=== PATIENT | male | born 1950 | race Caucasian/White ===

== ENCOUNTER 2019-07-09 11:05 | Outpatient (CLI) | payer MEDICARE, OTHER ==
[~2019-07-09] VITALS: Ht 172.7 cm; Wt 75.7 kg
[2019-07-09] VITALS (8 sets, daily range): BP systolic 111–155; BP diastolic 65–77
[2019-07-09] MEDS ORDERED: NS IV 500 ML 500 ML ONE (11:33)
--- NOTE | 2019-07-09 14:23 | Consultation - Surgery ---
History of Present Illness History of Present Illness Patient Consulted On(ulices/time) 07/09/19 14:17 Time Seen by Provider: 11:50 History of Present Illness Pt is a 69 yo male who was being sent to my office secondary to anemia, but got redirected to have blood transfusion. Apparently his hemoglobin approximately 6 months ago was 10 and now it is around 6. Pt admits to feeling weak and short of breath. His biggest complaint is that recently his back pain has been getting worse. states "the spasms stop him in his tracks and he has to wait til they pass". Pt also states that he is starting to have increasing pain and numbness in right leg. Importantly pt relates that he has renal stenosis and has had the right one stented; plus he has a AAA that is being followed by US. He thinks he may have seen some black BM's; doesn't remember anything red, however "I don't really look" was his statement. Allergies and Home Medications Allergies Coded Allergies: No Known Drug Allergies (Unverified , 07/09/19) Patient Home Medication List Home Medication List Reviewed: Yes (GEmfibrizol, Fish oil, Clonidine, ASA, Meloxicam, Lovastatin, Lisinopril, HCTZ) Past Kqobqxd-Afqmch-Mvllfa Hx Patient Social History Smoking Status: Former Smoker (Quit in 2003) Recent Foreign Travel: No Contact w/Someone Who Travel: No Recent Infectious Disease Expo: No Immunizations Up To Date Tetanus Booster (TDap): Unknown Seasonal Allergies Seasonal Allergies: No Surgeries History of Surgeries: Yes Surgeries: Renal (stent placement) Respiratory History of Respiratory Disorde: No Cardiovascular History of Cardiac Disorders: Yes (Hypercholesterolemia) Cardiac Disorders: Aneurysm Neurological History of Neurological Disord: No Reproductive System Hx Reproductive Disorders: No Sexually Transmitted Disease: No HIV/AIDS: No Genitourinary History of Genitourinary Disor: Yes (renal stenosis) Gastrointestinal History of Gastrointestinal Di: No Musculoskeletal Musculoskeletal Disorders: Degenerate Disk Disease, Spasms Endocrine History of Endocrine Disorders: No (However, pt has been diagnosed with "elevated glucose" in the past) HEENT History of HEENT Disorders: No Cancer History of Cancer: No Psychosocial History of Psychiatric Problem: No Integumentary History of Skin or Integumenta: No Blood Transfusions History of Blood Disorders: No Hx of Blood Transfusion Today is first transfusion Family Medical History Significant Family History: Cancer (Mother, Father, Sister), COPD (Lung), Diabetes (sister), Renal Disease (sister) Review of Systems-General Constitutional: dizziness, weight loss (pt has had decreased appetite over past few months) EENTM: No blurred vision, No double vision, No mouth pain, No mouth swelling, No epistaxis, No throat swelling Respiratory: dyspnea on exertion; No hemoptysis; short of breath; No wheezing Cardiovascular: No edema; Hx of Intervention; No palpitations; other (AAA) Gastrointestinal: abdominal pain; No diarrhea, No hematemesis, No jaundice; loss of appetite, melena Genitourinary: No dysuria, No frequency, No hematuria Musculoskeletal: back pain, joint pain, joint swelling, muscle pain, muscle stiffness Skin: No change in color, No change in hair/nails Psychiatric/Neurological: Denies Anxiety; Numbness, Paresthesia; Denies Seizure; Weakness Other pt denies any history of abnormal bleeding or bruising Physical Exam-General Problems Physical Exam Vital Signs Vital Signs - First Documented 07/09/19 11:25 Temp 36.7 Pulse 76 Resp 16 B/P (MAP) 134/69 Pulse Ox 98 O2 Delivery Room Air Capillary Refill : Less Than 3 Seconds General Appearance: WD/WN, mild distress Eyes: Bilateral Eye PERRL, Bilateral Eye EOMI HEENT: pharynx normal; No scleral icterus (R), No scleral icterus (L); pale conjunctivae (R), pale conjunctivae (L) Neck: non-tender, full range of motion, supple Respiratory: chest non-tender, lungs clear, normal breath sounds, no respiratory distress, no accessory muscle use Cardiovascular: regular rate, rhythm, systolic murmur (but may be due to AAA) Peripheral Pulses: 3+ Carotid (R), 3+ Carotid (L); 2+ Femoral (R); 3+ Femoral (L); 1+ Dorsalis Pedis (R); 3+ Left Dors-Pedis (L), 3+ Radial Pulses (R), 3+ Radial Pulses (L) Gastrointestinal: normal bowel sounds, non tender, soft, no organomegaly, other (pulsatile mass in abdomen) Back: no CVA tenderness, no vertebral tenderness Extremities: no pedal edema, no calf tenderness, normal capillary refill Neurologic/Psychiatric: rn access II-XII nml as tested, no motor/sensory deficits, alert, normal mood/affect, oriented x 3 Skin: normal color, warm/dry Lymphatic: no adenopathy (neck, axilla or groin) Assessment/Plan Assessment/Plan Assessment/Plan Anemia GI bleed AAA Renal Stenosis Pt is getting blood transfusion now, will need EGD and colonoscopy as an outpt. I discussed with pt that he may need a CT of abd/pelvis to look at his AAA. Of concern, but probably not likely would be if the aneurysm is leaking into the bowel. He should follow up right away with Vascular surgeon that is following him. He states US has shown no real change in the aneursym, "and my kidney and neck are ok". Sudden or severe back pain could be an emergent situation and he was told to not ignore any symptoms. We discussed risks and complications of colon and EGD; not limited to pain, bleeding, infection, intestinal perforation or esophageal rupture. All questions answered to their satisfaction and I will have my office call to schedule the procedures as an outpt. ALEENA TALAMANTES DO Jul 09, 2019 14:23
--- NOTE | 2019-07-09 14:44 | NUR ---
REPORT TO My LOGAN RN
[2019-07-09 14:55] LABS: HEMOGLOBIN 7.5 G/DL (13.3-17.7)
[2019-07-09 15:56] LABS: HEMOGLOBIN 7.5 G/DL (13.3-17.7)
[2019-07-10] MEDS ORDERED: CLON0.1T PO (11:27)
[2019-07-10] MEDS ORDERED: LISI40TA PO (11:28)
[2019-07-10] MEDS ORDERED: MULT-1056 PO (11:28)
[2019-07-10] MEDS ORDERED: CHOL10003 PO (11:28)
[2019-07-10] MEDS ORDERED: VITA1CAP PO (11:28)
[2019-07-10] MEDS ORDERED: LOVA10TA PO (11:28)
[2019-07-10] MEDS ORDERED: HYDR25TA4 PO (11:28)
[2019-07-10] MEDS ORDERED: GEMF600T8 PO (11:28)
== END 2019-07-09 16:19 | disposition home or self-care (01) ==
LOC: SDC 11:05
PROVIDERS: ATTEND Family Medicine
DX: D62 Acute posthemorrhagic anemia (principal); K92.2 Gastrointestinal hemorrhage, unspecified; I71.4 Abdominal aortic aneurysm, without rupture; I70.1 Atherosclerosis of renal artery; Z87.891 Personal history of nicotine dependence
CPT/HCPCS: 36415; 36430; 85014; 85018; 86850; 86900; 86901; 86920

== ENCOUNTER → 2019-07-09 | Outpatient (CLI) | payer MEDICARE ==
[~2019-07-09] MED LIST: CHOL10003 PO; CLON0.1T PO; GEMF600T8 PO; HYDR25TA4 PO; LISI40TA PO; LOVA10TA PO; MULT-1056 PO; VITA1CAP PO
[2019-07-09 09:48] LABS: WHITE BLOOD COUNT 7.4 10^3/uL (4.3-11.0)
[2019-07-09 09:51] LABS: HEMATOCRIT 23 % (40-54); HEMOGLOBIN 6.2 G/DL (13.3-17.7); MEAN CORPUSCULAR HEMOGLOBIN 18 PG (25-34); MEAN CORPUSCULAR VOLUME 65 FL (80-99)
[2019-07-09 09:52] LABS: BASOPHILS # (AUTO) 0.1 10^3/uL (0.0-0.1); BASOPHILS % (AUTO) 1 % (0-10); EOSINOPHILS # (AUTO) 0.1 10^3/uL (0.0-0.3); EOSINOPHILS % (AUTO) 1 % (0-10); LYMPHOCYTES # (AUTO) 1.3 X 10^3 (1.0-4.0); LYMPHOCYTES % (AUTO) 17 % (12-44); MEAN CORPUSCULAR HGB CONC 28 G/DL (32-36); MONOCYTES # (AUTO) 0.7 X 10^3 (0.0-1.0); MONOCYTES % (AUTO) 9 % (0-12); NEUTROPHILS # (AUTO) 5.3 X 10^3 (1.8-7.8); NEUTROPHILS % (AUTO) 71 % (42-75); PLATELET COUNT 403 10^3/uL (130-400); RED CELL DISTRIBUTION WIDTH 17.6 % (10.0-14.5)
== END ==
LOC: LAB FS 09:22
PROVIDERS: ATTEND Family Medicine
DX: D62 Acute posthemorrhagic anemia (principal)
CPT/HCPCS: 36415; 85025

== ENCOUNTER 2019-07-10 05:41 | Outpatient (CLI) | payer MEDICARE, OTHER ==
[~2019-07-10] VITALS: Ht 172.7 cm; Wt 75.7 kg
[2019-07-10] MEDS ORDERED: CLON0.1T PO (11:27)
[2019-07-10] MEDS ORDERED: MULT-1056 PO (11:28)
[2019-07-10] MEDS ORDERED: HYDR25TA4 PO (11:28)
[2019-07-10] MEDS ORDERED: CHOL10003 PO (11:28)
[2019-07-10] MEDS ORDERED: LOVA10TA PO (11:28)
[2019-07-10] MEDS ORDERED: VITA1CAP PO (11:28)
[2019-07-10] MEDS ORDERED: GEMF600T8 PO (11:28)
[2019-07-10] MEDS ORDERED: LISI40TA PO (11:28)
== END 2019-07-10 11:44 | disposition home or self-care (01) ==
LOC: PREOP 05:41
PROVIDERS: ATTEND Surgery
DX: Z01.818 Encounter for other preprocedural examination (principal)

== ENCOUNTER 2019-07-15 10:03 | Day surgery (SDC) | payer MEDICARE, OTHER ==
[~2019-07-15] VITALS: Ht 172.7 cm; Wt 75.7 kg
[2019-07-15] MEDS ORDERED: LACTATED RINGERS 1,000 ML IV ONE (10:13)
[2019-07-15 10:35] VITALS: BP 129/64
--- NOTE | 2019-07-15 10:37 | Progress Note-Pre Operative ---
Pre-Operative Progress Note H&P Reviewed The H&P was reviewed, patient examined and no changes noted. Time Seen by Provider: 10:34 Date H&P Reviewed: Jul 15, 2019 Time H&P Reviewed: 10:35 Pre-Operative Diagnosis: Anemia, GI bleed ALEENA TALAMANTES DO Jul 15, 2019 10:37
[2019-07-15] MEDS ORDERED: LACTATED RINGERS 1,000 ML IV STA (10:49)
[2019-07-15] MEDS ORDERED: HURRICAINE EXT TUBE (BENZOCAINE) XX PRN (11:00)
[2019-07-15] MEDS ORDERED: proPOfol 200 MG/20 ML (DIPRIVAN) VIAL IV ONE ×2 (11:46→12:40)
[2019-07-15] MEDS ORDERED: HURRICAINE EXT TUBE (BENZOCAINE) ONE (12:42)
--- NOTE | 2019-07-15 12:44 | Progress Note-Post Operative ---
Post-Operative Progess Note Surgeon (s)/Production Service Manager (s) Surgeon ALEENA TALAMANTES DO Production Service Manager: YARA Mojica Pre-Operative Diagnosis Anemia, GI bleed Post-Operative Diagnosis Gastritis, Hiatal hernia Right colon mass diverticula AVM Internal hemorrhoids Procedure & Operative Findings Date of Procedure 07/15/19 Procedure Performed/Findings EGD with bx Colon with hot bx Colon with tattoo Anesthesia Type IV sedation by LEGAL STENOGRAPHER Estimated Blood Loss Estimated blood loss (mL): scant Specimens/Packing Specimens Removed antral bx body of stomach bx GE jxn bx Right colon mass bx ALEENA TALAMANTES DO Jul 15, 2019 12:44
[2019-07-15 12:45] VITALS: BP 121/67
--- NOTE | 2019-07-15 12:46 | Endoscopy Discharge Instruct ---
Endo Procedure/Findings Findings 1.: Hiatal Hernia, Gastritis 2.: Polyp 3.: Diverticulosis 4.: Internal Hemorrhoids, Other Findings (AVM) Discharge Instructions - Activity: You might feel a little sleepy until tomorrow. This is due to the medicine you received to relax you. Until tomorrow, you should: NOT drive a car, operate machinery or power tools. NOT drink any alcoholic beverages. NOT make any important decisions or sign importortant papers. Do not return to work until tomorrow, unless otherwise instructed. Resume previous activities tomorrow. Diet: Start by taking liquids. If you tolerate liquids, advance to solid food. make an appointment for one week 1.: Colonoscopy in 1 year, EGD in 3 years Notify Physician - If you experience excessive bleeding, unusual abdominal pain, fever, or chest pain, contact your doctor immediately. ALEENA TALAMANTES DO Jul 15, 2019 12:46
[2019-07-15 13:07] VITALS: BP 121/67
[2019-07-15 13:15] VITALS: BP 92/75
[2019-07-15 13:24] VITALS: BP 92/75
--- NOTE | 2019-07-15 13:57 | Anesthesia-General Post-Op ---
MAC Patient Condition Mental Status/LOC: Same as Preop Cardiovascular: Satisfactory Nausea/Vomiting: Absent Respiratory: Satisfactory Pain: Controlled Complications: Absent Post Op Complications Complications None Follow Up Care/Instructions Patient Instructions None needed. Anesthesiology Discharge Order Discharge Order Patient is doing well, no complaints, stable vital signs, no apparent adverse anesthesia problems. No complications reported per nursing. CARLTON LEÓN CRNA Jul 15, 2019 13:57
--- NOTE | 2019-07-16 02:15 | OPERATIVE REPORT ---
DATE OF SERVICE: PREOPERATIVE DIAGNOSES: Anemia and gastrointestinal bleed. POSTOPERATIVE DIAGNOSES: 1. Gastritis. 2. Hiatal hernia. 3. Right colon mass. 4. Diverticula. 5. Arteriovenous malformation. 6. Internal hemorrhoids. PROCEDURES: 1. EGD with biopsy. 2. Colonoscopy with hot biopsy. 3. Colonoscopy with tattooing. SURGEON: Hussein Santillan DO. ROLL FORMING MACHINE OPERATOR: Sydni García MS3. SPECIMENS: Biopsy from the antrum, biopsy from the body of stomach, biopsy from GE junction, and then hot biopsies from the right-sided colon mass. BLOOD LOSS: Scant. FLUIDS: Per anesthesia. POSTOPERATIVE CONDITION: Stable. INDICATION FOR PROCEDURE: The patient is a 69-year-old male who has anemia, GI bleeding, has never had a colonoscopy and needed a workup. FINDINGS: The patient had some mild gastritis and hiatal hernia, possibly some esophagitis as well in the colon. On the right side, he had a colon mass. Biopsy done, tattooing done as well. PROCEDURE NOTE: After informed consent was obtained, the patient was brought to the endoscopy suite and placed in the left lateral decubitus position. He was administered IV sedation by the WOOD MACHINIST who then monitored his vitals the entire time, heart rate, blood pressure and pulse ox, started with the EGD, placed the scope down the mouth through the esophagus into the stomach. Upon entering the stomach, noted some mild gastritis, pushed into the duodenum. Duodenum looked fine, took a picture. Pulled back into the antrum, did a biopsy of the antrum, then pulled back, retroflexed the scope, did a biopsy of body of stomach, could see a small hiatal hernia, took a picture of this and then pulled the scope into the GE junction, saw some mild creeping up of the Z line, took a picture of this and then did a biopsy here. Suctioned the air out of the stomach and pulled the scope up the esophagus and out of the mouth and started the colonoscopy, pushed the scope in, on the way in, noted some diverticula and some AVMs, took a picture of these and then on the right side, not sure if this was at the cecum or if it was in the hepatic flexure could not tell, saw colonic mass, elected to do hot biopsies of these and then elected to do a tattooing, tattooed at the 5 o'clock, 7 o'clock and 10 o'clock positions trying to get around this area. Then slowly withdrew the scope, insufflating to look circumferential while looking at the what I believe was the ascending colon up to the hepatic flexure into the transverse colon, down the transverse colon, the splenic flexure into the descending colon and down in the sigmoid and finally into the rectum, retroflexed the rectal vault, saw some minimal internal hemorrhoids, took a picture of this and then removed the scope. The patient tolerated the procedure, recovered in endoscopy suite. Job ID: [id number] DocumentID: [id number] Dictated Date: 07/15/2019 15:45:54 Cashier Clerk Date: 07/16/2019 02:13:41 Dictated By: HUSSEIN SANTILLAN DO
[2019-07-25] MEDS ORDERED: FISH1CAP15 PO (13:17)
[2019-07-25] MEDS ORDERED: ASPI-586 PO (13:17)
== END 2019-07-15 13:25 | disposition home or self-care (01) ==
LOC: ENDO 10:03
PROVIDERS: ATTEND Surgery
DX: C18.9 Malignant neoplasm of colon, unspecified (principal); K29.50 Unspecified chronic gastritis without bleeding; K44.9 Diaphragmatic hernia without obstruction or gangrene; K57.30 Diverticulosis of large intestine without perforation or abscess without bleeding; K55.21 Angiodysplasia of colon with hemorrhage; K64.8 Other hemorrhoids; I71.4 Abdominal aortic aneurysm, without rupture; I70.1 Atherosclerosis of renal artery; E78.00 Pure hypercholesterolemia, unspecified; Z79.82 Long term (current) use of aspirin; Z79.899 Other long term (current) drug therapy; Z87.891 Personal history of nicotine dependence; K20.9 Esophagitis, unspecified
CPT/HCPCS: 88305; 88341; 88342

== ENCOUNTER → 2019-07-25 | Outpatient (CLI) | payer MEDICARE, OTHER ==
[~2019-07-25] VITALS: Ht 172 cm; Wt 75.4 kg
[~2019-07-25] MED LIST changes: +ASPI-586 PO; +FISH1CAP15 PO
[2019-07-25 13:18] VITALS: BP 132/65
[2019-07-25 13:47] LABS: BASOPHILS # (AUTO) 0.1 10^3/uL (0.0-0.1); BASOPHILS % (AUTO) 1 % (0-10); EOSINOPHILS # (AUTO) 0.1 10^3/uL (0.0-0.3); EOSINOPHILS % (AUTO) 2 % (0-10); HEMATOCRIT 25 % (40-54); HEMOGLOBIN 7.2 G/DL (13.3-17.7); LYMPHOCYTES # (AUTO) 2.1 X 10^3 (1.0-4.0); LYMPHOCYTES % (AUTO) 32 % (12-44); MEAN CORPUSCULAR HEMOGLOBIN 20 PG (25-34); MEAN CORPUSCULAR HGB CONC 29 G/DL (32-36); MEAN CORPUSCULAR VOLUME 68 FL (80-99); MEAN PLATELET VOLUME 9.6 FL (7.4-10.4); MONOCYTES # (AUTO) 0.8 X 10^3 (0.0-1.0); MONOCYTES % (AUTO) 12 % (0-12); NEUTROPHILS # (AUTO) 3.6 X 10^3 (1.8-7.8); NEUTROPHILS % (AUTO) 54 % (42-75); PLATELET COUNT 417 10^3/uL (130-400); RED CELL DISTRIBUTION WIDTH 20.8 % (10.0-14.5); WHITE BLOOD COUNT 6.7 10^3/uL (4.3-11.0)
[2019-07-25 14:06] LABS: BUN/CREATININE RATIO 15; CALCIUM 8.8 MG/DL (8.5-10.1); CARBON DIOXIDE 25 MMOL/L (21-32); CHLORIDE 98 MMOL/L (98-107); CREATININE SERUM 1.06 MG/DL (0.60-1.30); GFR ESTIMATED > 60; GLUCOSE 99 MG/DL (70-105); POTASSIUM 4.2 MMOL/L (3.6-5.0); SODIUM 131 MMOL/L (135-145)
== END ==
LOC: PREOP 13:04
PROVIDERS: ATTEND Surgery
DX: Z01.812 Encounter for preprocedural laboratory examination (principal); C18.9 Malignant neoplasm of colon, unspecified
CPT/HCPCS: 36415; 80048; 85025; 86850; 86900; 86901; 87081

== ENCOUNTER 2019-07-31 08:15 | Inpatient (IN) | payer MEDICARE, OTHER ==
[2019-07-31] VITALS (20 sets, daily range): BP systolic 126–174; BP diastolic 62–91
[~2019-07-31] VITALS: Ht 172.7 cm; Wt 75.4 kg
[2019-07-31 08:51] LABS: HEMOGLOBIN 8.1 G/DL (13.3-17.7)
[2019-07-31] MEDS: LACTATED RINGERS 1,000 ML IV PRN ×2 (08:58→15:10)
[2019-07-31] MEDS ORDERED: ceFAZolin 2 GM IV Premixed 50 ML IV ONE (09:00)
[2019-07-31] MEDS ORDERED: NS IV 500 ML 500 ML IV SCH (09:45)
[2019-07-31 12:13] LABS: HEMOGLOBIN 8.4 G/DL (13.3-17.7)
--- NOTE | 2019-07-31 13:32 | Progress Note-Pre Operative ---
Pre-Operative Progress Note H&P Reviewed The H&P was reviewed, patient examined and no changes noted. Time Seen by Provider: 13:30 Date H&P Reviewed: Jul 31, 2019 Time H&P Reviewed: 13:31 Pre-Operative Diagnosis: Colon CA hepatic flexure ALEENA TALAMANTES DO Jul 31, 2019 13:32
[2019-07-31] MEDS ORDERED: GLYCOPYRROLATE 0.2 MG/ML (ROBINUL) 2 ML VIAL ONE (14:06)
[2019-07-31] MEDS ORDERED: SEVOFLURANE (ULTANE) 15 ML INHAL SOLN ONE (14:06)
[2019-07-31] MEDS ORDERED: LIDOCAINE PF 2% 5 ML (XYLOCAINE) VIAL ONE (14:06)
[2019-07-31] MEDS ORDERED: NEOSTIGMINE 3 MG/3 ML VIAL ONE (14:06)
[2019-07-31] MEDS ORDERED: ROCURONIUM 10 MG/ML 5 ML SYRINGE IV ONE (14:06)
[2019-07-31] MEDS ORDERED: ONDANSETRON 4 MG/2 ML (SDV) Z0FRAN ONE (14:06)
[2019-07-31] MEDS ORDERED: proPOfol 200 MG/20 ML (DIPRIVAN) VIAL IV ONE (14:06)
[2019-07-31] MEDS ORDERED: MIDAZOLAM 2 MG/2 ML (VERSED) VIAL ONE (14:07)
[2019-07-31] MEDS ORDERED: fentaNYL INJECTION 100 MCG/2 ML AMP ONE (14:07)
[2019-07-31] MEDS ORDERED: BUP/EPI 0.5% 1:200,000 (SENSORCAINE) 30 ML VIAL ONE (14:08)
[2019-07-31] MEDS ORDERED: fentaNYL INJECTION 250 MCG/5 ML AMP ONE (14:10)
[2019-07-31 14:30] LABS: HEMOGLOBIN 9.4 G/DL (13.3-17.7)
--- NOTE | 2019-07-31 15:37 | Progress Note-Post Operative ---
Post-Operative Progess Note Surgeon (s)/Painting Contractor (s) Surgeon ALEENA TALAMANTES DO Painting Contractor: Mayte Pre-Operative Diagnosis Colon CA hepatic flexure Post-Operative Diagnosis Cecal Colon CA Procedure & Operative Findings Date of Procedure 07/31/19 Procedure Performed/Findings Lap hand assisted Right colon resection Anesthesia Type GET Estimated Blood Loss Estimated blood loss (mL): minimal Specimens/Packing Specimens Removed Portion of TI, appy and right colon ALEENA TALAMANTES DO Jul 31, 2019 15:37
[2019-07-31] MEDS ORDERED: ONDANSETRON 4 MG/2 ML (SDV) Z0FRAN IVP PRN ×2 (15:45→16:15)
[2019-07-31] MEDS ORDERED: ACETAMINOPHEN 500 MG TAB (TYLENOL) PO SCH (15:45)
[2019-07-31] MEDS ORDERED: KETOROLAC 30 MG/ML VIAL IVP SCH ×2 (15:45→21:45)
[2019-07-31] MEDS ORDERED: morphine INJ 10 MG/ML 1ML (SYR OR VIAL) IVP ONE (16:15)
[2019-07-31] MEDS ORDERED: HYDROmorphone 2 MG/ML VIAL (DILAUDID) IV ONE (16:15)
[2019-07-31] MEDS ORDERED: BUPIVACAINE 0.5% 30 ML (SENSORCAINE) VIAL ONE (16:19)
[2019-07-31] MEDS ORDERED: KETOROLAC 30 MG/ML VIAL ONE (16:29)
--- NOTE | 2019-07-31 17:00 | NUR ---
CHAN HERNANDEZ JR admitted to room OR-3, with an admitting diagnosis of POST LAP COLON RESECTION, on 07/31/19 from ER via [facility], accompanied by SURVEY RODMAN DARCY.CHAN HERNANDEZ JR introduced to surroundings, call light, bed controls, phone, TV, temperature control, lights, meal times, smoking policy, visitor policy, side rail policy, bathrooms and showers. Patient Rights given to patient in the handbook. CHAN HERNANDEZ JR verbalizes understanding that [facility] is not responsible for the loss or damage to any personal effects or valuables that are kept in the patients posession during their hospitalization. The following Patient Care Plans were discussed with the PT: Discharge Planning, NUT<BODY REQUIREMENT, CONSTIPATION, PAIN, HIGH RISK INFECTION, AND HIGH RISK POSTOP COMPLICATION. CHAN HERNANDEZ JR verbalizes understanding of Interdisciplinary Patient Education. Patient and/or family were informed about the Rapid Response Team and its purpose. CAME TO FLOOR WITH IV IN R WRIST -- BEDSIDE REPORT FROM SURVEY RODMAN DARCY
[2019-07-31] MEDS: LACTATED RINGERS 1,000 ML IV SCH ×2 (18:04→23:40)
[2019-07-31 18:05] LABS: HEMOGLOBIN 9.2 G/DL (13.3-17.7); MEAN PLATELET VOLUME 9.6 FL (7.4-10.4); RED CELL DISTRIBUTION WIDTH 19.9 % (10.0-14.5)
[2019-07-31] MEDS: ENOXAPARIN 40 MG/0.4 ML (LOVENOX) SYR SC SCH (18:12)
[2019-07-31] MEDS ORDERED: FLU QUADRIvalent (5+ YOA) 2019-2020 (AFLURIA) 0.5 ML IM ONE (19:15)
[2019-07-31] MEDS: KETOROLAC 15 MG/ML VIAL IV SCH (22:43)
[2019-08-01] MEDS: LACTATED RINGERS 1,000 ML IV SCH ×2 (02:10→23:30)
[2019-08-01] MEDS: ACETAMINOPHEN 500 MG TAB (TYLENOL) PO SCH ×3 (02:11→17:31)
[2019-08-01 04:05] VITALS: BP 166/72
[2019-08-01] MEDS: KETOROLAC 15 MG/ML VIAL IV SCH ×4 (05:15→22:59)
--- NOTE | 2019-08-01 07:16 | Anesthesia-General Post-Op ---
General Patient Condition Mental Status/LOC: Same as Preop Cardiovascular: Satisfactory Nausea/Vomiting: Absent Respiratory: Satisfactory Pain: Controlled Complications: Absent Post Op Complications Complications None Follow Up Care/Instructions Patient Instructions None needed. Anesthesia/Patient Condition Patient Condition Patient is doing well, no complaints, stable vital signs, no apparent adverse anesthesia problems. No complications reported per nursing. ENMA THOMPSON CRNA Aug 01, 2019 07:16
[2019-08-01 07:36] VITALS: BP 148/72
[2019-08-01] MEDS ORDERED: PANTOPRAZOLE 40 MG (PROTONIX) VIAL IVP SCH (09:00)
--- NOTE | 2019-08-01 10:56 | Progress Note - Surgery ---
KATH GABRIEL,MED STUDENT 08/01/19 1056: Subjective Date Seen by a Provider: Aug 01, 2019 Time Seen by a Provider: 10:30 Subjective/Events-last exam 1 day S/P right colon resection. Patient seen and examined. He is feeling well this morning and is up in the chair. He denies any nausea/vomiting. He did have one loose bowel movement this morning. He is currently on on a clear liquid diet and tolerating it well. He has some abdominal pain but states it is mild. He has been up to the bathroom several times to urinate. Review of Systems General: No Chills, No Fatigue HEENT: No Head Aches Pulmonary: No Dyspnea, No Cough Cardiovascular: No: Chest Pain, Lt Headedness Gastrointestinal: Abdominal Pain (mild); No: Nausea, Vomiting Genitourinary: No Dysuria, No Hematuria, No Retention Neurological: No: Weakness, Confusion Objective Exam Vital Signs Date Time Temp Pulse Resp B/P (MAP) Pulse Ox O2 Delivery O2 Flow Rate FiO2 08/01/19 07:36 37.0 70 18 148/72 (97) 96 Room Air 08/01/19 04:05 36.9 68 20 166/72 (103) 92 Room Air 07/31/19 23:33 36.7 70 20 154/67 (96) 94 Room Air 07/31/19 21:00 Room Air 07/31/19 19:43 37.8 67 16 156/72 (100) 97 Room Air 07/31/19 18:34 37.4 64 18 156/76 (102) 96 Room Air 07/31/19 17:00 97 Room Air 4.00 07/31/19 17:00 37.2 61 18 170/78 (108) 97 Room Air 07/31/19 16:55 37.2 16 155/72 (99) 97 Room Air 07/31/19 16:55 Room Air 07/31/19 16:50 37.2 16 155/72 (99) 97 Room Air 07/31/19 16:40 14 155/81 (105) 97 Room Air 07/31/19 16:40 Room Air 07/31/19 16:30 14 148/76 (100) 98 Room Air 07/31/19 16:25 Room Air 07/31/19 16:20 16 166/67 (100) 99 Room Air 07/31/19 16:10 16 174/91 (118) 100 OxyMask 4 07/31/19 16:10 OxyMask 4 07/31/19 16:00 16 158/87 (110) 100 OxyMask 6 07/31/19 15:58 OxyMask 6 07/31/19 15:58 37.0 16 153/81 (105) 100 OxyMask 6 07/31/19 14:15 36.8 70 18 128/62 98 Room Air 07/31/19 12:56 36.8 63 18 126/78 97 Room Air 07/31/19 12:41 36.8 63 18 146/74 97 Room Air 07/31/19 11:55 36.8 64 18 132/75 97 Room Air I & O 08/01/19 06:59 Intake Total 3565 ml Output Total 750 ml Balance 2815 ml Capillary Refill : Less Than 3 Seconds General Appearance: No Apparent Distress, WD/WN HEENT: PERRL/EOMI, Moist Mucous Membranes Neck: Non Tender, Supple Respiratory: Chest Non Tender, Lungs Clear, Normal Breath Sounds, No Accessory Muscle Use, No Respiratory Distress Cardiovascular: Regular Rate, Rhythm, Systolic Murmur Peripheral Pulses: 2+ Radial Pulses (R), 2+ Radial Pulses (L) Gastrointestinal: normal bowel sounds, soft, distended (mildly); No guarding, No rebound; tenderness (minimal), other (pulsatile abdominal aorta) Extremity: No Calf Tenderness, No Pedal Edema Neurologic/Psychiatric: Alert, Oriented x3 Skin: Normal Color, Warm/Dry, Other (midline abdominal incision closed with jacki) Results Lab Laboratory Tests 07/31/19 12:06: Hemoglobin 8.4L, Hematocrit 29L 07/31/19 14:20: Hemoglobin 9.4L, Hematocrit 31L 07/31/19 18:00: Hemoglobin 9.2L, Hematocrit 30L, White Blood Count 12.0H, Red Blood Count 4.31L, Mean Corpuscular Volume 70L, Mean Corpuscular Hemoglobin 21L, Mean Corpuscular Hemoglobin Concent 31L, Red Cell Distribution Width 19.9H, Platelet Count 285, Mean Platelet Volume 9.6, Creatinine 1.06 Assessment/Plan Assessment/Plan Assessment/Plan S/P Right Colon Resection Cecal Colon Cancer Encouraged use of IS and increased ambulation. Continue pain medication and antiemetics as needed. Increase to soft diet as tolerated Clinical Quality Measures DVT/VTE Risk/Contraindication: Risk Factor Score Per Nursin RFS Level Per Nursing on Admit: 4+=Very High HUSSEIN SANTILLAN DO 08/01/19 1103: Subjective Time Seen by a Provider: 10:30 Subjective/Events-last exam Pt stated he wants more than liquids to eat, no other complaints. Objective Exam Gastrointestinal: distended (mildly) Supervisory-Addendum Brief Verification & Attestation Participated in pt care: history, MDM, physical Personally performed: exam, history, MDM Care discussed with: Medical Student Procedures: n/a Verification and Attestation of Medical Student E/M Service A medical student performed and documented this service in my presence. I reviewed and verified all information documented by the medical student and made modifications to such information, when appropriate. I personally performed the physical exam and medical decision making. Hussein Santillan, Aug 01, 2019,11:03 KATH GABRIEL,MED STUDENT Aug 01, 2019 10:56 HUSSEIN SANTILLAN DO Aug 01, 2019 11:03
[2019-08-01 12:44] VITALS: BP 161/79
[2019-08-01] MEDS: cloNIDine 0.1 MG (CATAPRES) TAB PO SCH ×2 (13:21→21:15)
[2019-08-01] MEDS: lisINopril 40 MG (PRINIVIL) TABLET PO SCH (13:21)
--- NOTE | 2019-08-01 14:05 | NUR ---
Pastoral care visit.
--- NOTE | 2019-08-01 15:26 | NUR ---
RD ASSESSMENT PMHx: CA(colon); anemia, hypercholesterolemia PT INTERACTION: Pt was awake and pleasant during nutrition assessment. Pt states current appetite as "hungry." Pt states following a regular diet at home, and currently has no issues with chewing/swallowing at this time. Pt states no issues with n/v at this time. Pt states some issues with constipation prior to admit and surgery. Pt states some recent wt loss, but could not determine amount lost or timeframe lost. Note unable to determine recent wt hx, per chart review. Upon visual exam, pt appears to be adequately nourished with no visible signs of muscle/fat wasting and a BMI of 25.3. ABNORMAL NUTRITION-RELATED LAB VALUES: Labs WNL Est. kcal needs: 3383-6425 kcal (30-35 kcal/kg) Est. Pro needs: 90-113 g Pro (1.2-1.5 g Pro/kg) PES STATEMENT: Inadequate protein intake (NI-5.6.1) related to increased protein needs as evidenced by recent surgery (bowel resection) INTERVENTION: Continue with current diet order of DYS2 Mechanically Altered diet. Encouraged pt to eat when able. Add Ensure HP (vary) to meals BID. Provides 160 kcal and 16 g Pro per serving, for perceived benefits to wound healing. MONITOR/EVALUATE: PO Intake; Plan of Care; Hydration Status; Weight Status; Lab Values Cheyanne Levine, MS, RD, LD Ext. 133
--- NOTE | 2019-08-01 15:53 | OPERATIVE REPORT ---
DATE OF SERVICE: 07/31/2019 PREOPERATIVE DIAGNOSES: Right colon cancer, possibly hepatic flexure. POSTOPERATIVE DIAGNOSIS: Cecal colon cancer. PROCEDURE: Laparoscopic hand-assisted right colon resection. SURGEON: Aleena Santillan DO REFRIGERATOR TESTER: Ángel Hu DO ANESTHESIA: General endotracheal tube. SPECIMEN: Portion of right colon, portion of terminal ileum and appendix. BLOOD LOSS: Scant. FLUIDS: Per anesthesia. POSTOPERATIVE CONDITION: Stable. INDICATION FOR PROCEDURE: The patient is a 69-year-old male who unfortunately had a colonoscopy and found to have a large mass. Thought it may be in hepatic flexure, but definitely on the right side was tattooed. The biopsy came back as colon cancer. FINDINGS: The patient had a colon cancer turned out, it was actually in the cecum, right colon portion terminal ileum was removed. PROCEDURE NOTE: After informed consent was obtained, the patient was brought to the operating room, placed on the operating table in supine position, sterilely prepped and draped in normal fashion. I made a midline incision about 6 cm long with a #15 blade, carried down through the skin into subcutaneous tissue, deepened down to subcutaneous tissue with Bovie electrocautery down to the fascia. Fascia was incised with Bovie electrocautery and bluntly entered the abdomen, swept a finger around then increased the incision superiorly and inferiorly just large enough to get my hand in for a hand port. Noted the patient's AAA and tried to stay away from this. Could see the tattooing on the colon and we felt the colon realized that the mass was in the cecum. At this point, placed another 12 mm port in the midline above the hand port using local lidocaine, 11 blade for stab incision and Versed system, all done under direct visualization and then created pneumoperitoneum then placed another port in the right lower quadrant with the VersaStep system. A 5 mm port placed using local lidocaine, 11 blade for stab incision and the VersaStep system. Able to then grasp the mass and cecum and start coming through the pericolic gutter on the right along the white line of Toldt to be able to with the Bovie electrocautery as well as with the LigaSure. Then able to take this from the cecum all the way up to around the hepatic flexure to be able to bring this into the midline, so we could take it off freeing up the appendix. It felt like there was some appendicoliths in there and then freeing up the terminal ileum as well to be able to bring all this up, then removed the GelPort, delivered this intestine through, cut the terminal ileum about 6 cm from the cecum getting under with the Bovie electrocautery, placed a PAULINA-75 clamped and then fired thereby transecting this and then coming across the mesentery down to the peritoneal reflection with the LigaSure, clamping, coagulating and transecting. I also did some of this with the port on taking this off and then finally able to come right up past just below the hepatic flexure and then elected to use the PAULINA-75, made a defect in the antimesenteric border of the terminal ileum as well as in the tinea of the colon. Put one side of the PAULINA in either portion, attached together creating a [id number] functional end-to-end anastomosis, clamped and fired and then made a defect in the mesentery and came across this enterocolotomy with the PAULINA-75 clamped and fired thereby transecting this and then took the rest of this colon off taking the mesentery with the LigaSure, clamping, coagulating and transecting. Once this was freed then closed the defect with a 3-0 Vicryl running suture to close the mesenteric defect. Copiously irrigated with normal saline, dropped this back into the abdomen, looked around, did not see any other obvious pathology. Liver looked normal. Irrigated and suctioned this out and then closed the midline incision with a #1 double stranded PDS suture running from superior portion to inferior portion tying to itself. Irrigated the incision then created a pneumoperitoneum one more time just to look inside to look at the midline closure that looked good. At this point, I removed all ports, allowed the pneumoperitoneum to escape. The skin was then closed with jacki. Sponge, instrument and needle counts correct at the end of the case. Dr. Hu assisted in this case helping to make incisions, close incisions as well as identify anatomy, hold anatomy out of the way. Job ID: [id number] DocumentID: [id number] Dictated Date: 08/01/2019 12:36:06 Harness Inspector Date: 08/01/2019 15:51:48 Dictated By: ALEENA SANTILLAN, DO COTA
[2019-08-01 16:49] VITALS: BP 144/76
[2019-08-01] MEDS: OMEGA 3 (FISH OIL) 1000 MG CAP PO SCH (17:27)
[2019-08-01] MEDS: ENOXAPARIN 40 MG/0.4 ML (LOVENOX) SYR SC SCH (17:27)
[2019-08-01 20:10] VITALS: BP 143/78
[2019-08-01] MEDS ORDERED: SIMvastatin 10 MG (ZOCOR) TAB PO SCH (21:00)
[2019-08-01] MEDS: GEMFIBROZIL 600 MG (LOPID) TAB PO SCH (21:15)
[2019-08-01] MEDS ORDERED: MELATONIN 3 MG TABLET ONE (23:11)
[2019-08-01] MEDS ORDERED: MELATONIN 3 MG TABLET PO PRN (23:15)
[2019-08-02 00:07] VITALS: BP 122/65
[2019-08-02] MEDS: ACETAMINOPHEN 500 MG TAB (TYLENOL) PO SCH ×2 (02:12→10:29)
[2019-08-02 04:12] VITALS: BP 132/74
[2019-08-02] MEDS: KETOROLAC 15 MG/ML VIAL IV SCH ×2 (05:15→11:58)
[2019-08-02] MEDS: OMEGA 3 (FISH OIL) 1000 MG CAP PO SCH (06:44)
[2019-08-02] MEDS ORDERED: MULTIVIT W/MINERALS TAB (THERAGRAN M) PO SCH (07:00)
[2019-08-02] MEDS ORDERED: VITAMIN D3 1,000 UNITS (CHOLECALCIFEROL) TABLET PO SCH (07:00)
[2019-08-02 07:58] VITALS: BP 122/81
--- NOTE | 2019-08-02 08:07 | Progress Note - Surgery ---
KATH GABRIEL,MED STUDENT 08/02/19 0807: Subjective Date Seen by a Provider: Aug 02, 2019 Time Seen by a Provider: 07:30 Subjective/Events-last exam Day 2 S/P Right Colon Resection. Mr. Emery states he is feeling and doing well this morning. He denies nausea, vomiting, constipation, chest pain, fevers at this time. He does note some shortness of breath with exertion but states that is chronic for him. He has been passing gas since late morning yesterday and had 2 bowel movements yesterday and 2 today. He did notice some trace blood in his bowel movements this morning. He has no abdominal pain at rest and only mild abdominal pain with coughing. Review of Systems General: No Chills, No Fatigue HEENT: No Head Aches Pulmonary: Dyspnea (chronic); No Cough Cardiovascular: No: Chest Pain, Lt Headedness Gastrointestinal: Abdominal Pain (mild), Hematochezia; No: Nausea, Vomiting, Diarrhea, Constipation Genitourinary: No Dysuria, No Incontinence, No Hematuria Neurological: No: Weakness, Confusion Objective Exam Vital Signs Date Time Temp Pulse Resp B/P (MAP) Pulse Ox O2 Delivery O2 Flow Rate FiO2 08/02/19 07:58 36.5 89 18 122/81 (95) 95 Room Air 08/02/19 04:12 36.6 79 20 132/74 (93) 95 Room Air 08/02/19 00:07 36.2 67 20 122/65 (84) 94 Room Air 08/01/19 20:10 36.6 83 20 143/78 (99) 94 Room Air 08/01/19 20:10 94 Room Air 08/01/19 16:49 36.5 81 22 144/76 (98) 94 Room Air 08/01/19 12:44 36.9 76 18 161/79 (106) 95 Room Air 08/01/19 09:00 96 Room Air I & O 08/02/19 07:00 Intake Total 1995 ml Output Total 700 ml Balance 1295 ml Capillary Refill : Less Than 3 Seconds General Appearance: No Apparent Distress, WD/WN HEENT: PERRL/EOMI, Moist Mucous Membranes Neck: Non Tender, Supple Respiratory: Chest Non Tender, Lungs Clear, Normal Breath Sounds, No Accessory Muscle Use, No Respiratory Distress Cardiovascular: Regular Rate, Rhythm, Systolic Murmur Peripheral Pulses: 2+ Radial Pulses (R), 2+ Radial Pulses (L) Gastrointestinal: normal bowel sounds, non tender, distended (minimally); No guarding, No rebound Extremity: No Calf Tenderness, No Pedal Edema Neurologic/Psychiatric: Alert, Oriented x3 Skin: Normal Color, Warm/Dry, Other (midline abdominal incision closed with s taples) Results Lab Laboratory Tests 08/01/19 12:57: Lab Scanned Report Transfusion Reaction Form Assessment/Plan Assessment/Plan Assessment/Plan S/P Right Colon Resection Cecal Colon Cancer Continue use of IS and increased ambulation He is tolerating soft diet well, increase as tolerated Continue antiemetics and pain control as needed Follow-up with Dr. Santillan in clinic next week Clinical Quality Measures DVT/VTE Risk/Contraindication: Risk Factor Score Per Nursin RFS Level Per Nursing on Admit: 4+=Very High HUSSEIN SANTILLAN DO 08/02/19 1210: Subjective Time Seen by a Provider: 11:26 Subjective/Events-last exam pt seen and examined, states he had BM and flatus, denies pain, tolerating diet Objective Exam Gastrointestinal: distended (?? more than yesterdat) Assessment/Plan Assessment/Plan Assessment/Plan Pt is tolerating diet and pain controlled. Not really walking enough. I am concerned about his abdomen being slightly more distended, but he has no nausea or vomiting and is having BM's. Will send him home but told to come back if he has any changes Supervisory-Addendum Brief Verification & Attestation Participated in pt care: history, MDM, physical Personally performed: exam, history, MDM Care discussed with: Medical Student Procedures: n/a Verification and Attestation of Medical Student E/M Service A medical student performed and documented this service in my presence. I reviewed and verified all information documented by the medical student and made modifications to such information, when appropriate. I personally performed the physical exam and medical decision making. Hussein Santillan, Aug 02, 2019,12:10 KATH GABRIEL MED STUDENT Aug 02, 2019 08:07 HUSSEIN SANTILLAN DO Aug 02, 2019 12:10
[2019-08-02] MEDS: lisINopril 40 MG (PRINIVIL) TABLET PO SCH (08:15)
[2019-08-02] MEDS: GEMFIBROZIL 600 MG (LOPID) TAB PO SCH (08:15)
[2019-08-02] MEDS: cloNIDine 0.1 MG (CATAPRES) TAB PO SCH (08:16)
[2019-08-02] MEDS ORDERED: NON-FORMULARY MEDICATION 1 EA EA (Vitamin B Complex 1 EACH) PO SCH (09:00)
[2019-08-02] MEDS ORDERED: ASPIRIN 81 MG CHEW (CHILDREN'S ASA) PO SCH (09:00)
[2019-08-02] MEDS ORDERED: PANTOPRAZOLE 40 MG (PROTONIX) TAB PO SCH (09:00)
[2019-08-02] MEDS ORDERED: NON-FORMULARY MEDICATION 1 EA EA (Hydrochlorothiazide 25 MG) PO SCH (09:00)
[2019-08-02] MEDS ORDERED: lisINopril 40 MG (PRINIVIL) TABLET PO SCH (09:00)
[2019-08-02] MEDS ORDERED: HYDROCHLOROTHIAZIDE 25 MG (HCTZ) TAB PO SCH (09:00)
[2019-08-02 12:00] VITALS: BP 117/76
--- NOTE | 2019-08-02 12:12 | Discharge Inst-Surgical ---
Discharge Inst-Surgical Depart Medication/Instructions New, Converted or Re-Newed RX: Other (no rx needed) Patient Instructions Follow up Appt: Make appointment for 1 week. [phone] Instructions: No lifting greater than 20 pounds. No strenuous activity. May shower in 24 hours, no tub bath or soaking. Use incentive spirometer at home as directed. No Smoking Skin/Wound Care: May remove bandages in am. You need to leave the Dermabond on incision it will fall off on it's own. Symptoms to Report: Appetite Changes, Extremity Discoloration, Numbness/Tingling, Swelling Increased, Bleeding Excessive, Eyesight Changes, Pain Increased, Urine Color Change, Constipation(Persistent), Fever over 101 degree F, Pain/Pressure in chest, Urinating Difficulty, Cough Up/Vomit Blood, Heart Beat Irreg/Pounding, Pain/Pressure in jaw, Cramps in feet or legs, Lightheadedness, Pain/Pressure in shoulder, Diarrhea(Persistent), Memory Changes Suddenly, Questions/Concerns, Weight gain consecutive days, Dizziness/Fainting, Nausea/Vomiting, Shortness of Breath, Weight gain over 2 pounds If questions or concerns contact your physician Or seek help at emergency department. Activity Activity Instructions: Avoid Stress to Incision Driving Instructions: No Driving/Refer to Dr. Chu Discharge Diet: No Restrictions Diet After 24 Hours: Clear Liquid if Nauseous If Any Problems/Questions/Issu: Contact Your Physician, Go to Emergency Room Skin/Wound Care Infection Signs and Symptoms: Increased Redness, Foul Odor of Wound, Increased Drainage, Skin Itchy or Has a Rash, Increased Swelling, Temperature Above 101 F Bathing Instructions: Shower Stitches/Keller/Dermabond Dis: Care of ALEENA Flores DO Aug 02, 2019 12:12
--- NOTE | 2019-08-02 13:53 | NUR ---
Pt states he continues to work part-time but is thinking about quitting since his cancer diagnosis. Pt is and lives in [place]. He states his will be his caregiver upon discharge. He couldn't identify any post-hospital needs.
--- NOTE | 2019-08-07 10:43 | Physician Query-Final Dx ---
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
--- NOTE | 2019-08-07 16:35 | Physician Query Clarification ---
PQ-Further Specificity Admission/Discharge Admission Date: Jul 31, 2019 at 08:15 Discharge Date: Aug 02, 2019 at 13:07 The medical record reflects the following clinical scenario: History/Risk Factors: COLON MASS Clinical Findings: colon cancer Treatment: surgical removal Question: 1. Can you specify if all of cecum was removed or just a portion excised? 2. Can you specify of all of appendix was removed or just a portion excised? 3. Can you specify if all of terminal ileum was removed or just a portion excised? PHYSICIAN RESPONSE Can you specify per above: Other, explanation/clinical finding Explanation/Clinical Findings Pt had almost all of Ascending colon removed, all of cecum and appendix remove and appx 4-6cm of TI removed Please remember a lack of response to the above will prompt a phone page by CDI/Coding staff. In responding to this query, please exercise your independent professional judgment. The purpose of this communication is to more accurately reflect the complexity of your patients condition. The fact that a question is asked does not imply that any particular answer is desired or expected. Thank you for your timely response to this clarification. Requestors name: Lu Hammond Phone # [phone] THIS PHYSICIAN QUERY FORM IS A PERMANENT PART OF THE MEDICAL RECORD LU HARRINGTON Aug 07, 2019 16:35 ALEENA FORTUNE DO Aug 12, 2019 17:29 POS
== END 2019-08-02 13:07 | disposition home or self-care (01) | DRG 331 ==
LOC: 4TH 08:15 → SURG 08:16 → 4TH 16:50
PROVIDERS: ADMIT Surgery; ATTEND Surgery
PROC: 0DBB0ZX Excision of Ileum, Open Approach, Diagnostic (ICD-10-PCS; 2019-07-31)
PROC: 0DTJ0ZZ Resection of Appendix, Open Approach (ICD-10-PCS; 2019-07-31)
PROC: 0DBK0ZX Excision of Ascending Colon, Open Approach, Diagnostic (ICD-10-PCS; 2019-07-31)
PROC: 0DTH0ZZ Resection of Cecum, Open Approach (ICD-10-PCS; principal; 2019-07-31 14:43)
DX: C18.0 Malignant neoplasm of cecum (principal); K38.1 Appendicular concretions; I10 Essential (primary) hypertension; D64.9 Anemia, unspecified; K29.50 Unspecified chronic gastritis without bleeding; B96.81 Helicobacter pylori [H. pylori] as the cause of diseases classified elsewhere; I70.1 Atherosclerosis of renal artery; Z95.828 Presence of other vascular implants and grafts; Z87.891 Personal history of nicotine dependence; I71.4 Abdominal aortic aneurysm, without rupture; M19.91 Primary osteoarthritis, unspecified site
CPT/HCPCS: 36415; 82565; 85014; 85018; 85027; 86850; 86900; 86901; 86920; 88309; 94664

== ENCOUNTER 2019-08-06 09:54 | Emergency (ER) | payer MEDICARE ==
[~2019-08-06] VITALS: Ht 172.7 cm; Wt 71.4 kg
--- NOTE | 2019-08-06 11:21 | NUR ---
TO ROOM NO CHANGE FROM TRIAGE. DENIES ANY ABD PAIN JUST NAUSEA WITH VOMITNG. LAST TIME HE VOMITED WAS THIS AM.
[2019-08-06] MEDS ORDERED: NS IV 1000 ML 1,000 ML IV SCH (12:45)
[2019-08-06] MEDS ORDERED: ONDANSETRON 4 MG/2 ML (SDV) Z0FRAN IVP ONE (12:45)
--- NOTE | 2019-08-06 12:52 | ED GI ---
General Chief Complaint: Abdominal/GI Problems Stated Complaint: VOMITING Nursing Triage Note: PT HAD COLON RESECTION ON 07/31. VOMITING "GREEN STUFF" AND UNABLE TO KEEP ANYTHING DOWN X 2 DAYS. Sepsis Screen: No Definite Risk Source of Information: Patient Exam Limitations: No Limitations History of Present Illness Date Seen by Provider: Aug 06, 2019 Time Seen by Provider: 12:51 Initial Comments To ER with reports of nausea and vomiting for the past 2 days. He had a partial colectomy on 07/31/19 for colon cancer. He denies much abdominal pain, he is having bowel movements and passing gas even this morning. No fever no chills, just the vomiting. Timing/Duration: 1-2 Days Severity/Quality: Moderate Radiation: No Radiation Activities at Onset: None Associated Symptoms: Nausea/Vomiting Allergies and Home Medications Allergies Coded Allergies: No Known Drug Allergies (Unverified , 07/09/19) Home Medications Aspirin 81 Mg Tablet.dr, 81 MG PO DAILY, (Reported) Cholecalciferol (Vitamin D3) 1,000 Unit Tablet, 1,000 UNIT PO DAILY, (Reported) Clonidine HCl 0.1 Mg Tablet, 0.1 MG PO TID, (Reported) Fish Oil/Dha/Epa 1 Each Capsule, 1 EACH PO DAILY, (Reported) Gemfibrozil 600 Mg Tablet, 600 MG PO BID, (Reported) Hydrochlorothiazide 25 Mg Tablet, 25 MG PO DAILY, (Reported) Lisinopril 40 Mg Tablet, 40 MG PO DAILY, (Reported) Lovastatin 10 Mg Tablet, 10 MG PO DAILY, (Reported) Multivit-Min/FA/Lycopen/Lutein 1 Each Tablet, 1 EACH PO DAILY, (Reported) Vitamin B Complex 1 Each Capsule, 1 EACH PO DAILY, (Reported) Patient Home Medication List Home Medication List Reviewed: Yes Review of Systems Review of Systems Constitutional: see HPI EENTM: No Symptoms Reported Respiratory: No Symptoms Reported Cardiovascular: No Symptoms Reported Gastrointestinal: See HPI; Denies Abdominal Pain; Nausea, Vomiting Genitourinary: No Symptoms Reported Musculoskeletal: no symptoms reported Skin: no symptoms reported Psychiatric/Neurological: No Symptoms Reported Endocrine: No Symptoms Reported Past Mzfhgag-Xndzkn-Oaafer Hx Patient Social History Alcohol Use: Occasionally Uses Alcohol Beverage of Choice: Beer Recreational Drug Use: No Smoking Status: Former Smoker Type Used: Cigarettes Former Smoker, Quit: Jul 25, 1997 2nd Hand Smoke Exposure: No Recent Foreign Travel: No Contact w/Someone Who Travel: No Recent Infectious Disease Expo: No Recent Hopitalizations: Yes Immunizations Up To Date Tetanus Booster (TDap): Unknown Seasonal Allergies Seasonal Allergies: No Past Medical History Surgeries: Yes (renal stent) Bowel Surgery, Renal Respiratory: No Cardiac: Yes (aorta aneurysm) Aneurysm, High Cholesterol, Hypertension Neurological: No Reproductive Disorders: No Sexually Transmitted Disease: No HIV/AIDS: No Genitourinary: Yes (renal stenosis) Gastrointestinal: No Degenerate Disk Disease, Spasms Endocrine: No (However, pt has been diagnosed with "elevated glucose" in the past) HEENT: No Cancer: Yes Colon Psychosocial: No Integumentary: No Blood Disorders: Yes (anemia) Adverse Reaction/Blood Tranf: No (HAS HAD BLOOD WITH NO REACTION) Family Medical History Diabetes mellitus G8 SISTER G8 SISTER G8 SISTER FH: COPD (chronic obstructive pulmonary disease) G8 BROTHER G8 BROTHER G8 SISTER G8 SISTER FH: cancer G8 SISTER FH: lung cancer 19 FATHER 19 MOTHER FH: lupus G8 SISTER FH: skin cancer G8 BROTHER Kidney disease G8 SISTER Myocardial infarction G8 SISTER Cancer, COPD, Diabetes, Renal Disease Physical Exam Vital Signs Vital Signs - First Documented 08/06/19 10:16 Temp 35.8 Pulse 88 Resp 18 B/P (MAP) 93/64 (74) Pulse Ox 97 O2 Delivery Room Air Capillary Refill : Less Than 3 Seconds Height/Weight/BMI Height: '" Weight: lbs. oz. kg; 23.00 BMI Method: General Appearance: WD/WN, no apparent distress Respiratory: no respiratory distress, no accessory muscle use Cardiovascular: regular rate, rhythm, no murmur Gastrointestinal: normal bowel sounds, soft, other (midline abdominal incision is clean dry and intact without drainage or surrounding cellulitis. Bowel sounds are hypoactive but present) Extremities: normal range of motion, non-tender Neurologic/Psychiatric: alert, normal mood/affect, oriented x 3 Skin: normal color, warm/dry Progress/Results/Core Measures Results/Orders Lab Results Laboratory Tests Test 08/06/19 12:49 Range/Units White Blood Count 13.4 H 4.3-11.0 10^3/uL Red Blood Count 4.43 4.35-5.85 10^6/uL Hemoglobin 9.4 L 13.3-17.7 G/DL Hematocrit 31 L 40-54 % Mean Corpuscular Volume 70 L 80-99 FL Mean Corpuscular Hemoglobin 21 L 25-34 PG Mean Corpuscular Hemoglobin Concent 30 L 32-36 G/DL Red Cell Distribution Width 22.1 H 10.0-14.5 % Platelet Count 420 H 130-400 10^3/uL Mean Platelet Volume 9.2 7.4-10.4 FL Neutrophils (%) (Auto) 80 H 42-75 % Lymphocytes (%) (Auto) 11 L 12-44 % Monocytes (%) (Auto) 8 0-12 % Eosinophils (%) (Auto) 0 0-10 % Basophils (%) (Auto) 0 0-10 % Neutrophils # (Auto) 10.7 H 1.8-7.8 X 10^3 Lymphocytes # (Auto) 1.5 1.0-4.0 X 10^3 Monocytes # (Auto) 1.1 H 0.0-1.0 X 10^3 Eosinophils # (Auto) 0.0 0.0-0.3 10^3/uL Basophils # (Auto) 0.0 0.0-0.1 10^3/uL Sodium Level 134 L 135-145 MMOL/L Potassium Level 4.4 3.6-5.0 MMOL/L Chloride Level 88 L 98-107 MMOL/L Carbon Dioxide Level 29 21-32 MMOL/L Anion Gap 17 H 5-14 MMOL/L Blood Urea Nitrogen 41 H 7-18 MG/DL Creatinine 2.32 H 0.60-1.30 MG/DL Estimat Glomerular Filtration Rate 28 BUN/Creatinine Ratio 18 Glucose Level 116 H 70-105 MG/DL Calcium Level 9.5 8.5-10.1 MG/DL Corrected Calcium 9.5 8.5-10.1 MG/DL Total Bilirubin 0.4 0.1-1.0 MG/DL Aspartate Amino Transf (AST/SGOT) 34 5-34 U/L Alanine Aminotransferase (ALT/SGPT) 36 0-55 U/L Alkaline Phosphatase 73 40-136 U/L Total Protein 7.2 6.4-8.2 GM/DL Albumin 4.0 3.2-4.5 GM/DL Lipase 72 8-78 U/L My Orders Orders - JARROD WILD LADIES ATTENDANT Cbc With Automated Diff (08/06/19 12:21) Comprehensive Metabolic Panel (08/06/19 12:21) Lipase (08/06/19 12:21) Ua Culture If Indicated (08/06/19 12:21) Ed Iv/Invasive Line Start (08/06/19 12:21) Ondansetron Injection (Zofran Injectio (08/06/19 12:45) Ns Iv 1000 Ml (Sodium Chloride 0.9%) (08/06/19 12:45) Acute Abd Series (08/06/19 12:37) Lactated Ringers (Lr 1000 Ml Iv Solution (08/06/19 14:00) Medications Given in ED Current Medications Medications Dose Ordered Sig/Jen Route Start Time Stop Time Status Last Admin Dose Admin Ondansetron HCl 4 mg ONCE ONCE IVP 08/06/19 12:45 08/06/19 12:46 DC 08/06/19 12:59 4 MG Vital Signs/I&O 08/06/19 10:16 Temp 35.8 Pulse 88 Resp 18 B/P (MAP) 93/64 (74) Pulse Ox 97 O2 Delivery Room Air Blood Pressure Mean: 74 Diagnostic Imaging Diagonstic Imaging: Xray Comments NAME: CHAN HERNANDEZ [facility] REC#: [id number] PT STATUS: REG ER : 1950 PHYSICIAN: JARROD WILD APRN ADMIT DATE: 08/06/19/ER Draft Date of Exam:08/06/19 ACUTE ABD SERIES PATIENT HISTORY: Nausea and vomiting for 2 days. TECHNIQUE: Frontal view of the chest. Upright and supine frontal views of the abdomen. COMPARISON: None FINDINGS: Lung volumes are normal. There is mild airspace opacity in the right lung base. No pleural effusion or pneumothorax is seen. The cardiac silhouette is normal in size. There is aortic atherosclerosis. There are multiple prominent loops of small bowel, measuring up to 4 cm in diameter. Gas is seen in the colon as well. Anastomotic sutures are noted in the right abdomen. Skin jacki are seen in the midline. No large collection of free air is seen. IMPRESSION: 1. Multiple dilated loops of small bowel. Postoperative changes and gas in the colon suggests ileus, although a partial small bowel obstruction is in the differential. 2. Mild airspace opacities in the right lung base, may represent atelectasis or infiltrate. Dictated on workstation # [id number] Dict: 08/06/19 1405 Trans: 08/06/19 1419 [facility] [id number] Interpreted by: NEHA CALDERÓN MD Electronically signed by: Departure Communication (Admissions) Spoke with Dr. Santillan regarding patient's care, he agrees with plan, patient will follow-up with him this in the office. Impression Primary Impression: Acute renal insufficiency Additional Impression: Postoperative ileus Disposition: HOME, SELF-CARE Condition: Stable (Pain if you quit passing gas or having bowel movements) Departure-Patient Inst. Decision time for Depature: 15:53 Referrals: CROW HUTCHINSON MD (PCP/Family) Primary Care Physician JARROD WILD APRN Aug 06, 2019 12:52
[2019-08-06 12:55] LABS: BASOPHILS % (AUTO) 0 % (0-10); EOSINOPHILS % (AUTO) 0 % (0-10); HEMATOCRIT 31 % (40-54); HEMOGLOBIN 9.4 G/DL (13.3-17.7); LYMPHOCYTES # (AUTO) 1.5 X 10^3 (1.0-4.0); LYMPHOCYTES % (AUTO) 11 % (12-44); MEAN CORPUSCULAR HEMOGLOBIN 21 PG (25-34); MEAN CORPUSCULAR HGB CONC 30 G/DL (32-36); MEAN CORPUSCULAR VOLUME 70 FL (80-99); MEAN PLATELET VOLUME 9.2 FL (7.4-10.4); MONOCYTES # (AUTO) 1.1 X 10^3 (0.0-1.0); MONOCYTES % (AUTO) 8 % (0-12); NEUTROPHILS # (AUTO) 10.7 X 10^3 (1.8-7.8); NEUTROPHILS % (AUTO) 80 % (42-75); PLATELET COUNT 420 10^3/uL (130-400); RED CELL DISTRIBUTION WIDTH 22.1 % (10.0-14.5); WHITE BLOOD COUNT 13.4 10^3/uL (4.3-11.0)
[2019-08-06 13:20] LABS: BILIRUBIN,TOTAL 0.4 MG/DL (0.1-1.0); CALCIUM 9.5 MG/DL (8.5-10.1); CREATININE SERUM 2.32 MG/DL (0.60-1.30); POTASSIUM 4.4 MMOL/L (3.6-5.0); TOTAL PROTEIN 7.2 GM/DL (6.4-8.2)
[2019-08-06] MEDS ORDERED: LACTATED RINGERS 1,000 ML IV SCH (14:00)
--- NOTE | 2019-08-06 14:19 | Diagnostic Imaging Report ---
PATIENT HISTORY: Nausea and vomiting for 2 days. TECHNIQUE: Frontal view of the chest. Upright and supine frontal views of the abdomen. COMPARISON: None FINDINGS: Lung volumes are normal. There is mild airspace opacity in the right lung base. No pleural effusion or pneumothorax is seen. The cardiac silhouette is normal in size. There is aortic atherosclerosis. There are multiple prominent loops of small bowel, measuring up to 4 cm in diameter. Gas is seen in the colon as well. Anastomotic sutures are noted in the right abdomen. Skin jacki are seen in the midline. No large collection of free air is seen. IMPRESSION: 1. Multiple dilated loops of small bowel. Postoperative changes and gas in the colon suggests ileus, although a partial small bowel obstruction is in the differential. 2. Mild airspace opacities in the right lung base, may represent atelectasis or infiltrate. Dictated by: Dictated on workstation # [id number]
[2019-08-06 16:05] VITALS: BP 90/50
[2019-08-06] MEDS ORDERED: ONDA8TAB13 PO (16:06)
== END 2019-08-06 16:09 | disposition home or self-care (01) ==
LOC: ER 09:54 → EDUNIT# 09:54 → ER 16:09
DX: N28.9 Disorder of kidney and ureter, unspecified (principal); K56.7 Ileus, unspecified; I10 Essential (primary) hypertension; E78.00 Pure hypercholesterolemia, unspecified; D64.9 Anemia, unspecified; Z85.038 Personal history of other malignant neoplasm of large intestine; Z79.82 Long term (current) use of aspirin; Z87.891 Personal history of nicotine dependence; Z80.1 Family history of malignant neoplasm of trachea, bronchus and lung; Z82.49 Family history of ischemic heart disease and other diseases of the circulatory system; Z80.8 Family history of malignant neoplasm of other organs or systems
CPT/HCPCS: 36415; 74022; 80053; 83690; 85025

== ENCOUNTER → 2019-08-28 | Outpatient (CLI) | payer MEDICARE, OTHER ==
[~2019-08-28] MED LIST changes: +BARIUM SUSPENSION 2.1% (VANILLA SILQ) 450 ML PO ONE; +CATHETER FLUSH 10 ML SYR IV PRN; +HOLD METFORMIN - RECEIVED CONTRAST 20 ML VIAL IV SCH; +IOHEXOL 350 MG/ML 100 ML (OMNIPAQUE 350) VIAL IV ONE; +NS 100 ML (IVPB) BAG IV ONE; +ONDA8TAB13 PO
--- NOTE | 2019-08-28 14:16 | Diagnostic Imaging Report ---
PROCEDURE: CT chest with contrast, CT abdomen and pelvis with and without contrast. TECHNIQUE: Pre and post intravenous contrast axial imaging of the abdomen and pelvis and post contrast axial imaging of the chest were performed. Auto Exposure Controls were utilized during the CT exam to meet ALARA standards for radiation dose reduction. INDICATION: Colon carcinoma. COMPARISON: No prior studies are available for comparison. CT CHEST: No axillary lymphadenopathy is detected. No mediastinal or hilar lymphadenopathy is identified. There are coronary arterial calcifications. No pericardial or pleural fluid is identified. No pulmonary infiltrates, nodules, or masses are seen. IMPRESSION: No evidence of thoracic lymphadenopathy or pulmonary metastatic disease. CT ABDOMEN AND PELVIS: No focal liver mass is detected. The gallbladder is unremarkable. No biliary ductal dilatation is seen. The pancreas and spleen are unremarkable. Right adrenal gland is unremarkable. There is some mild nodularity involving the lateral limb of the left adrenal gland measuring 17 mm. No renal mass or hydronephrosis is seen. There is aneurysmal dilatation of the infrarenal abdominal aorta measuring up to 4.4 cm in AP diameter. There is a large amount of mural thrombus. The aneurysm does terminate above the bifurcation. No central retroperitoneal or mesenteric lymphadenopathy is seen. The small and large bowel loops appear to be normal in caliber. There is no obstruction. No free fluid or fluid collection is seen. Bladder is unremarkable. No definite pelvic lymphadenopathy is seen. The bony structures are unremarkable. IMPRESSION: 1. No evidence of abdominal or pelvic lymphadenopathy or metastatic disease. 2. Infrarenal abdominal aortic aneurysm measuring up to 4.4 cm in AP diameter. No leakage or rupture is identified. Dictated by: Dictated on workstation # [id number]
== END ==
LOC: RAD 11:55
PROVIDERS: ATTEND Internal Medicine Hematology & Oncology
DX: I71.9 Aortic aneurysm of unspecified site, without rupture (principal); Z85.038 Personal history of other malignant neoplasm of large intestine
CPT/HCPCS: 71260; 74178

== ENCOUNTER 2019-09-17 10:11 | Outpatient (RCR) | payer MEDICARE, OTHER ==
[2019-08-22 17:39] LABS: BASOPHILS # (AUTO) 0.1 10^3/uL (0.0-0.1); BASOPHILS % (AUTO) 1 % (0-10); EOSINOPHILS # (AUTO) 0.1 10^3/uL (0.0-0.3); EOSINOPHILS % (AUTO) 1 % (0-10); HEMATOCRIT 31 % (40-54); HEMOGLOBIN 9.1 G/DL (13.3-17.7); LYMPHOCYTES # (AUTO) 2.5 X 10^3 (1.0-4.0); LYMPHOCYTES % (AUTO) 34 % (12-44); MEAN CORPUSCULAR HEMOGLOBIN 21 PG (25-34); MEAN CORPUSCULAR HGB CONC 29 G/DL (32-36); MEAN CORPUSCULAR VOLUME 73 FL (80-99); MEAN PLATELET VOLUME 9.8 FL (7.4-10.4); MONOCYTES # (AUTO) 0.5 X 10^3 (0.0-1.0); MONOCYTES % (AUTO) 7 % (0-12); NEUTROPHILS # (AUTO) 4.1 X 10^3 (1.8-7.8); NEUTROPHILS % (AUTO) 56 % (42-75); PLATELET COUNT 553 10^3/uL (130-400); RED CELL DISTRIBUTION WIDTH 21.8 % (10.0-14.5); WHITE BLOOD COUNT 7.2 10^3/uL (4.3-11.0)
[2019-08-22 17:52] LABS: ALANINE AMINOTRANSFERASE 16 U/L (0-55); ALBUMIN 3.8 GM/DL (3.2-4.5); ALKALINE PHOSPHATASE 74 U/L (40-136); BILIRUBIN,TOTAL 0.3 MG/DL (0.1-1.0); BUN/CREATININE RATIO 14; CALCIUM 8.8 MG/DL (8.5-10.1); CARBON DIOXIDE 21 MMOL/L (21-32); CHLORIDE 102 MMOL/L (98-107); CREATININE SERUM 0.91 MG/DL (0.60-1.30); GFR ESTIMATED > 60; GLUCOSE 100 MG/DL (70-105); POTASSIUM 4.2 MMOL/L (3.6-5.0); SODIUM 136 MMOL/L (135-145); TOTAL PROTEIN 6.9 GM/DL (6.4-8.2)
[~2019-09-17 10:11] MED LIST changes: -BARIUM SUSPENSION 2.1% (VANILLA SILQ) 450 ML PO ONE; -CATHETER FLUSH 10 ML SYR IV PRN; +FERRIC CARBOXYMALTOSE (CANCER) 750 MG in NS (IVPB) CANCER CENTER 250 ML IV SCH; -HOLD METFORMIN - RECEIVED CONTRAST 20 ML VIAL IV SCH; -IOHEXOL 350 MG/ML 100 ML (OMNIPAQUE 350) VIAL IV ONE; -NS 100 ML (IVPB) BAG IV ONE
== END 2019-11-20 | disposition home or self-care (01) ==
LOC: ONC 10:11
PROVIDERS: ATTEND Internal Medicine Hematology & Oncology
DX: C18.9 Malignant neoplasm of colon, unspecified (principal); D64.9 Anemia, unspecified; N28.9 Disorder of kidney and ureter, unspecified; I10 Essential (primary) hypertension
CPT/HCPCS: 80053; 82378; 82728; 83540; 85025; 96365; 99213; 99214

== ENCOUNTER → 2019-12-02 | Outpatient (CLI) | payer MEDICARE, OTHER ==
[~2019-12-02] MED LIST changes: -FERRIC CARBOXYMALTOSE (CANCER) 750 MG in NS (IVPB) CANCER CENTER 250 ML IV SCH
[2019-12-02 09:16] LABS: BASOPHILS % (AUTO) 1 % (0-10); EOSINOPHILS # (AUTO) 0.3 10^3/uL (0.0-0.3); EOSINOPHILS % (AUTO) 5 % (0-10); HEMATOCRIT 41 % (40-54); HEMOGLOBIN 13.1 G/DL (13.3-17.7); LYMPHOCYTES # (AUTO) 2.2 X 10^3 (1.0-4.0); LYMPHOCYTES % (AUTO) 48 % (12-44); MEAN CORPUSCULAR HEMOGLOBIN 28 PG (25-34); MEAN CORPUSCULAR HGB CONC 32 G/DL (32-36); MEAN CORPUSCULAR VOLUME 88 FL (80-99); MEAN PLATELET VOLUME 10.3 FL (7.4-10.4); MONOCYTES # (AUTO) 0.5 X 10^3 (0.0-1.0); MONOCYTES % (AUTO) 11 % (0-12); NEUTROPHILS # (AUTO) 1.6 X 10^3 (1.8-7.8); NEUTROPHILS % (AUTO) 35 % (42-75); PLATELET COUNT 216 10^3/uL (130-400); RED CELL DISTRIBUTION WIDTH 17.2 % (10.0-14.5); WHITE BLOOD COUNT 4.6 10^3/uL (4.3-11.0)
[2019-12-02 09:29] LABS: CARBON DIOXIDE 27 MMOL/L (21-32); CHLORIDE 99 MMOL/L (98-107); POTASSIUM 4.4 MMOL/L (3.6-5.0); SODIUM 139 MMOL/L (135-145)
[2019-12-02 09:30] LABS: ALANINE AMINOTRANSFERASE 15 U/L (0-55); ALBUMIN 4.5 GM/DL (3.2-4.5); ALKALINE PHOSPHATASE 56 U/L (40-136); BILIRUBIN,TOTAL 0.2 MG/DL (0.1-1.0); BUN/CREATININE RATIO 24; CALCIUM 9.4 MG/DL (8.5-10.1); CREATININE SERUM 1.11 MG/DL (0.60-1.30); GFR ESTIMATED > 60; GLUCOSE 109 MG/DL (70-105); TOTAL PROTEIN 7.6 GM/DL (6.4-8.2)
== END ==
LOC: LAB FS 08:42
PROVIDERS: ATTEND Internal Medicine Hematology & Oncology
DX: C18.0 Malignant neoplasm of cecum (principal)
CPT/HCPCS: 36415; 80053; 82378; 82728; 83540; 85025

== ENCOUNTER → 2020-02-19 | Outpatient (CLI) | payer MEDICARE, OTHER ==
[2020-02-19 09:44] LABS: HEMATOCRIT 37 % (40-54); HEMOGLOBIN 12.4 G/DL (13.3-17.7); MEAN CORPUSCULAR HEMOGLOBIN 31 PG (25-34); MEAN CORPUSCULAR VOLUME 91 FL (80-99); WHITE BLOOD COUNT 6.7 10^3/uL (4.3-11.0)
[2020-02-19 09:45] LABS: BASOPHILS # (AUTO) 0.1 10^3/uL (0.0-0.1); BASOPHILS % (AUTO) 1 % (0-10); EOSINOPHILS # (AUTO) 0.2 10^3/uL (0.0-0.3); EOSINOPHILS % (AUTO) 3 % (0-10); LYMPHOCYTES # (AUTO) 2.3 X 10^3 (1.0-4.0); LYMPHOCYTES % (AUTO) 34 % (12-44); MEAN CORPUSCULAR HGB CONC 34 G/DL (32-36); MEAN PLATELET VOLUME 10.5 FL (7.4-10.4); MONOCYTES # (AUTO) 0.6 X 10^3 (0.0-1.0); MONOCYTES % (AUTO) 9 % (0-12); NEUTROPHILS # (AUTO) 3.5 X 10^3 (1.8-7.8); NEUTROPHILS % (AUTO) 53 % (42-75); PLATELET COUNT 235 10^3/uL (130-400)
[2020-02-19 10:01] LABS: BUN/CREATININE RATIO 25; CARBON DIOXIDE 24 MMOL/L (21-32); CHLORIDE 103 MMOL/L (98-107); CREATININE SERUM 1.13 MG/DL (0.60-1.30); GFR ESTIMATED > 60; GLUCOSE 127 MG/DL (70-105); POTASSIUM 4.7 MMOL/L (3.6-5.0); SODIUM 142 MMOL/L (135-145)
[2020-02-19 10:02] LABS: ALANINE AMINOTRANSFERASE 5 U/L (0-55); ALBUMIN 4.8 GM/DL (3.2-4.5); ALKALINE PHOSPHATASE 53 U/L (40-136); BILIRUBIN,TOTAL 0.4 MG/DL (0.1-1.0); CALCIUM 9.8 MG/DL (8.5-10.1); TOTAL PROTEIN 7.6 GM/DL (6.4-8.2)
== END ==
LOC: LAB FS 09:16
PROVIDERS: ATTEND Internal Medicine Hematology & Oncology
DX: C18.0 Malignant neoplasm of cecum (principal)
CPT/HCPCS: 36415; 80053; 82378; 82728; 85025

== ENCOUNTER 2020-03-02 10:49 | Outpatient (RCR) | payer MEDICARE, OTHER | END 2020-03-03 | disposition home or self-care (01) | LOC: ONC 10:49 | PROVIDERS: ATTEND Internal Medicine Hematology & Oncology | DX: C18.9 Malignant neoplasm of colon, unspecified (principal); D64.9 Anemia, unspecified; N28.9 Disorder of kidney and ureter, unspecified; I10 Essential (primary) hypertension | CPT/HCPCS: 99213 ==

== ENCOUNTER 2020-05-29 09:58 | Outpatient (RCR) | payer MEDICARE, OTHER | END 2020-07-10 08:27 | disposition home or self-care (01) | LOC: ONC 09:58 | PROVIDERS: ATTEND Internal Medicine Hematology & Oncology | DX: C18.0 Malignant neoplasm of cecum (principal); I10 Essential (primary) hypertension; D64.9 Anemia, unspecified; E78.00 Pure hypercholesterolemia, unspecified; M19.90 Unspecified osteoarthritis, unspecified site; E78.5 Hyperlipidemia, unspecified; Z98.890 Other specified postprocedural states | CPT/HCPCS: 99213 ==

== ENCOUNTER → 2020-08-24 | Outpatient (CLI) | payer MEDICARE, OTHER ==
[~2020-08-24] MED LIST changes: +CLN.1T PO; -CLON0.1T PO
[2020-08-24 08:03] LABS: HEMOGLOBIN 12.9 G/DL (13.3-17.7); MEAN CORPUSCULAR HEMOGLOBIN 30 PG (25-34); WHITE BLOOD COUNT 6.5 10^3/uL (4.3-11.0)
[2020-08-24 08:04] LABS: BASOPHILS # (AUTO) 0.1 10^3/uL (0.0-0.1); BASOPHILS % (AUTO) 1 % (0-10); EOSINOPHILS # (AUTO) 0.2 10^3/uL (0.0-0.3); EOSINOPHILS % (AUTO) 3 % (0-10); HEMATOCRIT 39 % (40-54); LYMPHOCYTES # (AUTO) 2.4 X 10^3 (1.0-4.0); LYMPHOCYTES % (AUTO) 37 % (12-44); MEAN CORPUSCULAR HGB CONC 33 G/DL (32-36); MEAN CORPUSCULAR VOLUME 90 FL (80-99); MEAN PLATELET VOLUME 10.4 FL (7.4-10.4); MONOCYTES # (AUTO) 0.7 X 10^3 (0.0-1.0); MONOCYTES % (AUTO) 11 % (0-12); NEUTROPHILS # (AUTO) 3.1 X 10^3 (1.8-7.8); NEUTROPHILS % (AUTO) 47 % (42-75); PLATELET COUNT 261 10^3/uL (130-400)
[2020-08-24 09:07] LABS: ALANINE AMINOTRANSFERASE 15 U/L (0-55); ALKALINE PHOSPHATASE 61 U/L (40-136); BILIRUBIN,TOTAL 0.3 MG/DL (0.1-1.0); BUN/CREATININE RATIO 23; CALCIUM 9.9 MG/DL (8.5-10.1); CARBON DIOXIDE 24 MMOL/L (21-32); CHLORIDE 102 MMOL/L (98-107); CREATININE SERUM 1.16 MG/DL (0.60-1.30); GFR ESTIMATED > 60; GLUCOSE 114 MG/DL (70-105); POTASSIUM 4.3 MMOL/L (3.6-5.0); SODIUM 140 MMOL/L (135-145)
[2020-08-24 09:08] LABS: ALBUMIN 4.8 GM/DL (3.2-4.5); TOTAL PROTEIN 7.4 GM/DL (6.4-8.2)
== END ==
LOC: LAB FS 07:47
DX: C18.0 Malignant neoplasm of cecum (principal)
CPT/HCPCS: 36415; 80053; 82378; 82728; 85025

== ENCOUNTER → 2020-08-28 | Outpatient (CLI) | payer MEDICARE, OTHER | LOC: ONC 12:00 | PROVIDERS: ATTEND Internal Medicine Hematology & Oncology | DX: C18.2 Malignant neoplasm of ascending colon (principal); C18.7 Malignant neoplasm of sigmoid colon; C20 Malignant neoplasm of rectum; I10 Essential (primary) hypertension; E78.00 Pure hypercholesterolemia, unspecified | CPT/HCPCS: 99213 ==

== ENCOUNTER 2020-11-06 05:33 | Outpatient (RCR) | payer MEDICARE, OTHER ==
[~2020-11-06] VITALS: Ht 172.7 cm; Wt 80.8 kg
--- NOTE | 2020-11-07 08:57 | NUR ---
Notified of positive COV ID test. He does not have any symotoms and does not remember having any.
== END 2020-11-06 10:03 | disposition home or self-care (01) ==
LOC: PREOP 05:33
PROVIDERS: ATTEND Surgery
DX: Z01.818 Encounter for other preprocedural examination (principal); U07.1 COVID-19; Z85.038 Personal history of other malignant neoplasm of large intestine
CPT/HCPCS: 87635

== ENCOUNTER 2021-01-04 07:10 | Outpatient (RCR) | payer MEDICARE, OTHER ==
[~2021-01-04] VITALS: Ht 172.7 cm; Wt 80.8 kg
[~2021-01-04 07:10] MED LIST changes: -GEMF600T8 PO; +GEMF600T88 PO; -LISI40TA PO; +LISI40TA9 PO
== END 2021-01-05 10:57 | disposition home or self-care (01) ==
LOC: PREOP 07:10
PROVIDERS: ATTEND Surgery
DX: Z01.818 Encounter for other preprocedural examination (principal)

== ENCOUNTER 2021-01-11 09:40 | Day surgery (SDC) | payer MEDICARE, OTHER ==
[~2021-01-11] VITALS: Ht 172.7 cm; Wt 80.8 kg
[2021-01-11] VITALS (7 sets, daily range): BP systolic 75–147; BP diastolic 51–99
[2021-01-11] MEDS ORDERED: LACTATED RINGERS 1,000 ML IV ONE ×2 (09:49→11:42)
[2021-01-11] MEDS ORDERED: LACTATED RINGERS 1,000 ML IV STA (09:49)
[2021-01-11] MEDS ORDERED: HURRICAINE EXT TUBE (BENZOCAINE) XX PRN (10:00)
[2021-01-11] MEDS ORDERED: PROPOFOL INJECTION 50 ML IV ONE ×2 (11:06→11:42)
[2021-01-11] MEDS ORDERED: MIDAZOLAM 2 MG/2 ML (VERSED) VIAL ONE (11:09)
--- NOTE | 2021-01-11 12:29 | Progress Note-Post Operative ---
Post-Operative Progess Note Surgeon (s)/Weatherization Specialist (s) Surgeon ALEENA TALAMANTES DO Weatherization Specialist: none Pre-Operative Diagnosis Hx Colon CA hepatic flexure, Gastritis Post-Operative Diagnosis Gastric Ulcer Gastritis hiatal hernia colon polyps diverticula int hemorrhoids Procedure & Operative Findings Date of Procedure 01/11/21 Procedure Performed/Findings EGD with bx Colon with snare Anesthesia Type IV sedation by CONTRACT ENGINEER Estimated Blood Loss Estimated blood loss (mL): scant Specimens/Packing Specimens Removed antral bx body of stomach bx GE jxn bx sigmoid polyp x 2 rectal polyp ALEENA TALAMANTES DO Jan 11, 2021 12:29
--- NOTE | 2021-01-11 12:30 | Endoscopy Discharge Instruct ---
Endo Procedure/Findings Findings 1.: Gastric Ulcer 2.: Hiatal Hernia, Gastritis 3.: Polyp 4.: Diverticulosis, Internal Hemorrhoids Discharge Instructions - Activity: You might feel a little sleepy until tomorrow. This is due to the medicine you received to relax you. Until tomorrow, you should: NOT drive a car, operate machinery or power tools. NOT drink any alcoholic beverages. NOT make any important decisions or sign importortant papers. Do not return to work until tomorrow, unless otherwise instructed. Resume previous activities tomorrow. Diet: Start by taking liquids. If you tolerate liquids, advance to solid food. 1.: EGD in 1 year 2.: Colonscopy in 3 years Notify Physician - If you experience excessive bleeding, unusual abdominal pain, fever, or chest pain, contact your doctor immediately. ALEENA TALAMANTES DO Jan 11, 2021 12:29
--- NOTE | 2021-01-11 13:02 | Anesthesia-General Post-Op ---
MAC Patient Condition Mental Status/LOC: Same as Preop Cardiovascular: Satisfactory Nausea/Vomiting: Absent Respiratory: Satisfactory Pain: Controlled Complications: Absent Post Op Complications Complications None Follow Up Care/Instructions Patient Instructions None needed. Anesthesiology Discharge Order Discharge Order Patient is doing well, no complaints, stable vital signs, no apparent adverse anesthesia problems. No complications reported per nursing. ENMA THOMPSON CRNA Jan 11, 2021 13:02
--- NOTE | 2021-01-12 21:26 | OPERATIVE REPORT ---
DATE OF SERVICE: 01/11/2021 PREOPERATIVE DIAGNOSES: History of colon cancer and gastritis. POSTOPERATIVE DIAGNOSES: Gastric ulcer, gastritis, hiatal hernia as well as polyps, diverticula, internal hemorrhoids. AVM of the intestine. PROCEDURES: 1. EGD with biopsy. 2. Colonoscopy with snare polypectomy. SURGEON: Hussein Santillan DO IRRIGATION WORKER: None. ANESTHESIA: IV sedation by the NANNY/HOUSEHOLD MANAGER. SPECIMEN: Biopsy of the antrum, biopsy of stomach, biopsy of the GE junction as well as then 2 polyps in the sigmoid colon and one polyp from the rectum. BLOOD LOSS: Scant. FLUIDS: Per anesthesia. POSTOPERATIVE CONDITION: Stable. INDICATION FOR PROCEDURE: The patient is a 70-year-old male with a history of colon cancer, needed a workup as well as having some gastritis and needed EGD. FINDINGS: The patient had what looked like ulcers in the stomach as well as he had some gastritis and had a large hiatal hernia. In the colon, he had 3 polyps, 2 in the sigmoid, one in the rectum. He had some diverticula and internal hemorrhoids. PROCEDURE NOTE: After informed consent was obtained, the patient was brought to the endoscopy suite, placed in bed in left lateral decubitus position. He was administered IV sedation by the NANNY/HOUSEHOLD MANAGER who then monitored his vitals the entire time, heart rate, blood pressure and pulse ox and the scope was inserted down the mouth through the esophagus into the stomach. At the top of the esophagus, saw what looked like maybe esophagitis, took a picture, pushed into the stomach, saw some inflammation in the body of stomach and then what retroflexed the scope, saw hiatal hernia as well as some inflammation and at end of the antrum, saw what looked like ulcers, did a biopsy of these ulcers and then pulled back, did a biopsy of the body of stomach and then pulled into the GE junction, did another biopsy. Suctioned all the air out of stomach and then pulled the scope up the esophagus and out the mouth. Duodenum looked okay. Rest of the esophagus looked okay. Switched camera, switched gloves, went down below, started the colonoscopy, pushed in and on the way in noted some diverticula, took a picture, it will get all the way to the anastomosis. I think he had a right colectomy, took a picture of the anastomosis, could see the small intestine. Saw couple of jacki on the inside and then from here, slowly withdrew the scope insufflating to look circumferentially at the milan looking at the transverse colon, I also found an AVM and then found some small polyp in the sigmoid colon, did a snare polypectomy and then found another polyp, did another snare polypectomy and then down into the rectum and found another polyp in the rectum and then did another small polypectomy and then took a picture of the internal hemorrhoids on the way out. Removed the scope. The patient tolerated the procedure. He was recovered in endoscopy suite. Job ID: [id number] DocumentID: [id number] Dictated Date: 01/12/2021 17:29:07 Events Associate Date: 01/12/2021 21:25:36 Dictated By: HUSSEIN SANTILLAN DO
== END 2021-01-11 13:01 | disposition home or self-care (01) ==
LOC: ENDO 09:40
PROVIDERS: ATTEND Surgery
DX: K63.5 Polyp of colon (principal); K29.50 Unspecified chronic gastritis without bleeding; K25.9 Gastric ulcer, unspecified as acute or chronic, without hemorrhage or perforation; K44.9 Diaphragmatic hernia without obstruction or gangrene; K57.30 Diverticulosis of large intestine without perforation or abscess without bleeding; K64.8 Other hemorrhoids; C18.7 Malignant neoplasm of sigmoid colon; Q27.33 Arteriovenous malformation of digestive system vessel; I10 Essential (primary) hypertension; E78.00 Pure hypercholesterolemia, unspecified; D64.9 Anemia, unspecified; M19.90 Unspecified osteoarthritis, unspecified site; E78.5 Hyperlipidemia, unspecified; Z79.899 Other long term (current) drug therapy; Z79.82 Long term (current) use of aspirin; Z79.02 Long term (current) use of antithrombotics/antiplatelets; Z87.891 Personal history of nicotine dependence; Z85.038 Personal history of other malignant neoplasm of large intestine
CPT/HCPCS: 88305; 88342

== ENCOUNTER → 2021-01-25 | Outpatient (CLI) | payer MEDICARE, OTHER ==
[2021-01-25 11:03] LABS: BASOPHILS # (AUTO) 0.1 10^3/uL (0.0-0.1); BASOPHILS % (AUTO) 1 % (0-10); EOSINOPHILS # (AUTO) 0.2 10^3/uL (0.0-0.3); EOSINOPHILS % (AUTO) 3 % (0-10); HEMATOCRIT 39 % (40-54); HEMOGLOBIN 12.9 g/dL (13.3-17.7); LYMPHOCYTES # (AUTO) 2.2 10^3/uL (1.0-4.0); LYMPHOCYTES % (AUTO) 28 % (12-44); MEAN CORPUSCULAR HEMOGLOBIN 30 pg (25-34); MEAN CORPUSCULAR HGB CONC 33 g/dL (32-36); MEAN CORPUSCULAR VOLUME 91 fL (80-99); MEAN PLATELET VOLUME 10.7 fL (9.0-12.2); MONOCYTES # (AUTO) 0.8 10^3/uL (0.0-1.0); MONOCYTES % (AUTO) 10 % (0-12); NEUTROPHILS # (AUTO) 4.5 10^3/uL (1.8-7.8); NEUTROPHILS % (AUTO) 58 % (42-75); PLATELET COUNT 270 10^3/uL (130-400); WHITE BLOOD COUNT 7.8 10^3/uL (4.3-11.0)
[2021-01-25 11:33] LABS: ALANINE AMINOTRANSFERASE 14 U/L (0-55); ALBUMIN 4.1 GM/DL (3.2-4.5); ALKALINE PHOSPHATASE 51 U/L (40-136); BILIRUBIN,TOTAL 0.4 MG/DL (0.1-1.0); BUN/CREATININE RATIO 18; CALCIUM 9.3 MG/DL (8.5-10.1); CARBON DIOXIDE 26 MMOL/L (21-32); CHLORIDE 102 MMOL/L (98-107); CREATININE SERUM 1.03 MG/DL (0.60-1.30); GFR ESTIMATED > 60; GLUCOSE 121 MG/DL (70-105); POTASSIUM 4.2 MMOL/L (3.6-5.0); SODIUM 137 MMOL/L (135-145); TOTAL PROTEIN 7.3 GM/DL (6.4-8.2)
== END ==
LOC: ONC 10:51
PROVIDERS: ATTEND Internal Medicine Hematology & Oncology
DX: C18.3 Malignant neoplasm of hepatic flexure (principal); C18.7 Malignant neoplasm of sigmoid colon; C20 Malignant neoplasm of rectum; E78.00 Pure hypercholesterolemia, unspecified; D64.9 Anemia, unspecified
CPT/HCPCS: 80053; 82728; 83540; 83550; 85025; G0463; 99213

== ENCOUNTER → 2021-07-26 | Outpatient (CLI) | payer MEDICARE, OTHER | LOC: ONC 11:12 | PROVIDERS: ATTEND Internal Medicine Hematology & Oncology | DX: C18.2 Malignant neoplasm of ascending colon (principal); C18.3 Malignant neoplasm of hepatic flexure; C18.7 Malignant neoplasm of sigmoid colon; C20 Malignant neoplasm of rectum; I10 Essential (primary) hypertension; E78.00 Pure hypercholesterolemia, unspecified; D64.9 Anemia, unspecified | CPT/HCPCS: 99213 ==

== ENCOUNTER 2022-01-26 10:44 | Outpatient (RCR) | payer MEDICARE, OTHER | END 2022-02-12 | disposition home or self-care (01) | LOC: ONC 10:44 | PROVIDERS: ATTEND Internal Medicine Hematology & Oncology | DX: C18.2 Malignant neoplasm of ascending colon (principal); C18.3 Malignant neoplasm of hepatic flexure; C18.7 Malignant neoplasm of sigmoid colon; C20 Malignant neoplasm of rectum; D64.9 Anemia, unspecified; I10 Essential (primary) hypertension; E78.00 Pure hypercholesterolemia, unspecified | CPT/HCPCS: 99213 ==

== ENCOUNTER 2023-01-26 09:15 | Outpatient (RCR) | payer MEDICARE, OTHER | END 2023-02-12 | disposition home or self-care (01) | LOC: ONC 09:15 | PROVIDERS: ATTEND Internal Medicine Hematology & Oncology | DX: C18.2 Malignant neoplasm of ascending colon (principal); C18.3 Malignant neoplasm of hepatic flexure; C18.7 Malignant neoplasm of sigmoid colon; C20 Malignant neoplasm of rectum; D64.9 Anemia, unspecified; I10 Essential (primary) hypertension; E78.00 Pure hypercholesterolemia, unspecified ==